=== PATIENT | female | born 1975 | race Caucasian/White ===

== ENCOUNTER 2024-07-02 07:13 | Day surgery (SDC) | payer BC ==
[~2024-07-02] VITALS: Ht 160 cm; Wt 81.0 kg
[~2024-07-02 07:13] MED LIST: 24 HOUR ALLER15.8 ML NAS; CALCIUM 500 MG1 EAC5 PO; FISH OIL 1,001000 MG PO; IBLOOD GLUCOSE TEST STRIP 1 EA TEST VI PRN; LACTATED RINGER'S 1,000 ML IV SCH; LEVOTHYROXINE112 MC1 PO; LIDOCAINE HCL 1% 5 ML SDV INJ ONE; MAGNESIUM500 MG PO; MIDAZOLAM HCL 5 MG/5 ML VIAL IV PRN; PROBIOTIC250 MG PO; VENTOLIN HFA18 GM INH; VITAMIN C1000 MG PO; ZYRTEC10 M3 PO; fentaNYL citrate 100 MCG/2 ML VIAL IV PRN
[2024-07-02 07:43] VITALS: BP 150/93
--- NOTE | 2024-07-02 07:45 | NUR ---
VISITED DURING SPIRITUAL CARE ROUNDS. PT DENIED IMMEDIATE NEEDS. FAN BLADE ALIGNER PROVIDED SUPPORTIVE PRESENCE, ANXIETY CONTAINMENT, PRAYER. PT EXPRESSED GRATIDUDE.
[2024-07-02] MEDS ORDERED: fentaNYL citrate 100 MCG/2 ML VIAL ONE (08:24)
[2024-07-02] MEDS ORDERED: MIDAZOLAM HCL 5 MG/5 ML VIAL ONE (08:24)
--- NOTE | 2024-07-02 09:25 | NUR ---
07/02/24 0925 Pat Avina 0916- PT ARRIVES TO PACU AWAKE AND TALKING, ALTHOUGH DROWSY. RESP EVEN AND UNLABORED. OXYGEN SAT HIGH 90'S TO 100% ON 3L VIA CO2 NC. PT DENIES ANY PAIN OR NAUSEA. 09- OXYGEN TITRATED OFF. PT IS ABLE TO ROLL HERSELF TO HER BACK PER HER REQUEST. DENIES DIZZINESS OR NAUSEA WITH MOVEMENT.
[2024-07-02 09:46] VITALS: BP 116/80
--- NOTE | 2024-07-03 06:27 | OR ---
[facility] [address], [place] [address] Signed DATE OF OPERATION: 07/02/2024 SURGEON: David Duron MD PREOPERATIVE DIAGNOSES: 1. Screening. 2. Lactose intolerance. POSTOPERATIVE DIAGNOSES: 1. 5 mm polyp, proximal right colon. 2. Minimal internal hemorrhoids. PROCEDURE: Colonoscopy with hot biopsy. ESTIMATED BLOOD LOSS: None. INDICATIONS: Carter is a 48-year-old female, asked to see me for her initial screening colonoscopy. She has completely cut milk products out of her diet including medications. She told me all the IBS and diarrhea symptoms resolved back in 2015 with her change in diet. She now has no lower GI complaints. She has no family history of colon cancer or polyps. In the office, I gave her a pamphlet on colonoscopy. She understands the nature of the test. There is risk including, but not limited to gas bloating, crampy abdominal pain, bleeding, perforation requiring surgery, and missed diagnosis. We also reviewed the written instructions for the bowel prep line by line. She also understands the need for IV conscious sedation. She is aware an adult person has to take her home afterwards. She had expressed understanding and wished to proceed. DESCRIPTION OF PROCEDURE: Carter was taken into our endoscopy suite and placed in the left lateral decubitus position. She was given 8 mg of Versed and 125 mcg of fentanyl to cover the case. A digital rectal exam was performed and this was unremarkable. She had no external hemorrhoids. She had good sphincter tone. There were no masses. The adult colonoscope was introduced and advanced all around into the cecum under direct visualization of the camera without difficulty. Her prep was good. We could easily see the appendiceal orifice and the ileocecal valve. The scope was then slowly withdrawn. We took several pictures throughout for photodocumentation. She had a 5 mm polyp in the proximal right colon. It was easily biopsied and destroyed completely with the hot biopsy forceps. Electronically Signed By: DAVID UDRON MD 07/03/24 0627 PATIENT NAME: CARTER ALEXANDRE OPERATIVE REPORT DATE OF : 75 REPORT #: [id number] PHYSICIAN: DAVID DURON MD PCP: ROSLYN DURON DO REPORT IS CONFIDENTIAL AND NOT TO BE RELEASED WITHOUT AUTHORIZATION [facility] [address], [place] [address] Signed The rest of the colon was unremarkable. Her rectum was unremarkable. Upon retroflexion of the scope, she has very minimal internal hemorrhoid tissue. After this, the gas was suctioned out and the colonoscope removed. Carter tolerated the procedure quite well. RECOMMENDATIONS: I will see Carter back in my office in 7 to 14 days to review her results. MD CICI White/RUFUSL /[id number] cc: DO David Macedo MD Copies: ROSLYN DURON ANDREW L MD ~ Electronically Signed By: DAVID DURON MD 07/03/24 0627 PATIENT NAME: CARTER ALEXANDRE OPERATIVE REPORT DATE OF : 75 REPORT #: [id number] PHYSICIAN: DAVID DURON MD PCP: ROSLYN DURON DO REPORT IS CONFIDENTIAL AND NOT TO BE RELEASED WITHOUT AUTHORIZATION
--- NOTE | 2024-07-04 11:44 | PATH ---
[facility] [address] [place], [place] [address] Signed SPECIMEN(S): A PROXIMAL ASCENDING POLYP SPECIMEN SOURCE: A. PROXIMAL ASCENDING POLYP CLINICAL HISTORY: Screening FINAL PATHOLOGIC DIAGNOSIS: Proximal ascending polyp: - Tubular adenoma (one fragment). JVR:cml MICROSCOPIC EXAMINATION: Histologic sections of all submitted blocks are examined by light microscopy. These findings, together with the gross examination, support the pathologic diagnosis. GROSS DESCRIPTION: The specimen, labeled and designated "Kaiser, proximal ascending polyp," is received in formalin and consists of one fuller soft tissue fragment, 0.2 cm. Entirely submitted in (A1). VB (under the direct supervision of a pathologist) The Gross Description was prepared using a voice recognition system. The report was reviewed for accuracy; however, sound-alike word errors, addition and/or deletions may occur. If there is any question about this report, please contact Client Services. PERFORMING LABORATORY: Technical component was performed by [facility], [address] [place] [id number] (CLIA# [id number]). Professional interpretation was performed by [facility], [address] [place] [id number] (CLIA#: [id number]). Diagnostician: Herman Pedroza MD Pathologist Electronically Signed 07/04/2024 Copies: PATIENT NAME: CARTER ALEXANDRE PATHOLOGY DATE OF : 75 REPORT #: [id number] PHYSICIAN: KIRSTEN PATHOLOGY PCP: ROSLYN DURON DO REPORT IS CONFIDENTIAL AND NOT TO BE RELEASED WITHOUT AUTHORIZATION [address] [address] Signed ~ PATIENT NAME: CARTER ALEXANDRE PATHOLOGY DATE OF : 75 REPORT #: [id number] PHYSICIAN: KIRSTEN PATHOLOGY PCP: ROSLYN DURON DO REPORT IS CONFIDENTIAL AND NOT TO BE RELEASED WITHOUT AUTHORIZATION
== END 2024-07-02 09:54 | disposition home or self-care (01) ==
LOC: DS 07:13 → OPS 07:13 → DS 09:00 → OPS 09:00
PROVIDERS: ATTEND Colon & Rectal Surgery
PROC: 0DBF8ZZ Excision of Right Large Intestine, Via Natural or Artificial Opening Endoscopic (ICD-10-PCS; principal; 2024-07-02 07:30)
DX: Z12.11 Encounter for screening for malignant neoplasm of colon (principal); D12.2 Benign neoplasm of ascending colon; K64.8 Other hemorrhoids; E03.9 Hypothyroidism, unspecified; E78.00 Pure hypercholesterolemia, unspecified; J30.1 Allergic rhinitis due to pollen; E73.9 Lactose intolerance, unspecified; E66.9 Obesity, unspecified; Z68.31 Body mass index [BMI] 31.0-31.9, adult; Z79.890 Hormone replacement therapy; Z79.899 Other long term (current) drug therapy
CPT/HCPCS: 84703; 99153; G0500; J2250; J3010; J7121